=== PATIENT | male | born 1980 | race Caucasian/White ===

== ENCOUNTER 2018-12-13 14:55 | Inpatient (IN) | payer SELFPAY ==
[~2018-12-13] VITALS: Ht 172.7 cm; Wt 115.7 kg
[2018-12-13] MEDS ORDERED: TRIH2TAB3 PO (17:39)
[2018-12-13] MEDS ORDERED: TRAM50TA4 PO (17:39)
[2018-12-13] MEDS ORDERED: HYDR25TA PO (17:39)
[2018-12-13] MEDS ORDERED: CLON1 PO (17:39)
[2018-12-13] MEDS ORDERED: BACL10TA PO (17:39)
[2018-12-13 18:02] LABS: BASOPHILS % (AUTO) 1.1 % (0.0-2.0); EOSINOPHILS % (AUTO) 0.8 % (1.0-6.0); HEMATOCRIT 50.2 % (41-53); HEMOGLOBIN 16.4 g/dL (13.5-17.5); LYMPHOCYTES # (AUTO) 2.6 K/uL (1.0-4.8); LYMPHOCYTES % (AUTO) 22.2 % (22.0-44.0); MEAN CORPUSCULAR HEMOGLOBIN 27.6 pg (26.0-34.0); MEAN CORPUSCULAR HGB CONC 32.6 G/dL (31.0-37.0); MEAN CORPUSCULAR VOLUME 85 fL (80-100); MONOCYTES # (AUTO) 1.1 K/uL (0.1-1.0); MONOCYTES % (AUTO) 9.2 % (2.0-9.0); NEUTROPHILS # (AUTO) 7.7 K/uL (1.8-7.7); NEUTROPHILS % (AUTO) 66.7 % (40.0-70.0); PLATELET COUNT (AUTO) 471 K/uL (150-450); RED BLOOD CELL COUNT(AUTO) 5.92 MIL/uL (4.50-5.90)
[2018-12-13 18:10] LABS: AMPHET/METH SCREEN,URINE NEGATIVE (NEGATIVE); BARBITURATE SCREEN, URINE NEGATIVE (NEGATIVE); BENZODIAZEPINES SCREEN,URINE NEGATIVE (NEGATIVE); CANNABINOID SCREEN,URINE NEGATIVE (NEGATIVE); COCAINE SCREEN,URINE NEGATIVE (NEGATIVE); METHADONE SCREEN, URINE NEGATIVE (NEGATIVE); OPIATE SCREEN,URINE NEGATIVE (NEGATIVE)
[2018-12-13 18:11] LABS: ANION GAP 12 mmol/L (8-16); CALCIUM, TOTAL 9.8 mg/dL (8.8-10.5); CARBON DIOXIDE 27 mmol/L (22-29); CHLORIDE 98 mmol/L (98-107); CREATININE 1.13 mg/dL (0.60-1.30); GLOMERULAR FILTR. RATE CALC > 60 mL/min (>60); GLUCOSE,RANDOM 118 mg/dL (70-110); POTASSIUM 3.6 mmol/L (3.5-5.1); SODIUM SERUM 137 mmol/L (136-145); UREA NITROGEN, BLOOD 13 mg/dL (7-18)
[2018-12-13 18:12] LABS: PHENCYCLIDINE SCREEN,URINE POSITIVE (NEGATIVE)
[2018-12-13 18:17] LABS: ALANINE AMINOTRANSFERASE 44 U/L (12-78); ALBUMIN 4.1 g/dL (3.4-5.0); ALKALINE PHOSPHATASE 148 U/L (46-116); ASPARTATE AMINOTRANSFERASE 28 U/L (15-37); BILIRUBIN,TOTAL 0.8 mg/dL (0.1-1.0); TOTAL PROTEIN, SERUM 9.6 g/dL (6.4-8.2)
[2018-12-13 18:20] LABS: ACETAMINOPHEN < 2 mcg/mL (10-30)
[2018-12-13 18:33] LABS: SALICYLATE < 2.8 mg/dL (2.8-20.0)
[2018-12-13] MEDS ORDERED: ZOLPIDEM TARTRATE 10 MG TABLET PO PRN (19:30)
[2018-12-13] MEDS ORDERED: HALOPERIDOL 5 MG TABLET PO PRN (19:30)
[2018-12-13] MEDS ORDERED: ACETAMINOPHEN 325 MG TABLET PO PRN (21:30)
[2018-12-13] MEDS ORDERED: MAGNESIUM HYDROXIDE SUSPENSION 30 ML UDCUP PO PRN (21:30)
[2018-12-13] MEDS ORDERED: ALBUTEROL SULFATE HFA 90 MCG/PUFF 8 GM INHALER IH PRN (21:30)
[2018-12-13] MEDS ORDERED: MAG HYDROX/AL HYDROX/SIMETH ES 30 ML SUSPENSION UDCUP PO PRN (21:30)
[2018-12-13] MEDS ORDERED: GuaiFENesin/D-METHORPHAN [SUGAR-FREE] 200-20MG/10 ML SYRUP UDCUP PO PRN (21:30)
[2018-12-13] MEDS ORDERED: CloNIDine HCL 0.1 MG TABLET PO PRN (21:30)
[2018-12-13] MEDS ORDERED: IBUPROFEN 400 MG TABLET PO PRN (21:30)
[2018-12-13] MEDS ORDERED: ONDANSETRON HCL 4 MG TABLET PO PRN (21:30)
[2018-12-13] MEDS ORDERED: DOCUSATE SODIUM 100 MG CAPSULE PO PRN (21:30)
[2018-12-13] MEDS ORDERED: LOPERAMIDE HCL 2 MG CAPSULE PO PRN (21:30)
[2018-12-13] MEDS ORDERED: PETROLATUM,WHITE 28 GM JELLY TP PRN (21:30)
[2018-12-13] MEDS ORDERED: NICOTINE 14 MG/24 HOUR PATCH TD PRN (21:30)
[2018-12-14 01:03] VITALS: BP 110/65
[2018-12-14] MEDS ORDERED: PNEUMOCOCCAL VACCINE POLYVALENT 0.5 ML VIAL [PPSV23] IM ONE (01:30)
[2018-12-14 08:00] LABS: CHOL/HDL RATIO 8.2 (4.2-7.3)
[2018-12-14 08:31] VITALS: BP 117/85
[2018-12-14] MEDS: HYDROCHLOROTHIAZIDE 25 MG TABLET PO SCH (08:35)
[2018-12-14] MEDS: TRIHEXYPHENIDYL HCL 2 MG TABLET PO SCH ×2 (13:15→17:01)
[2018-12-14] MEDS: ClonazePAM 1 MG TABLET PO SCH ×2 (13:15→17:01)
[2018-12-14 17:10] VITALS: BP 113/73
[2018-12-15 06:08] VITALS: BP 118/73
[2018-12-15] MEDS: LORazepam 2 MG TABLET PO PRN ×2 (06:08→20:50)
[2018-12-15 08:56] VITALS: BP 130/79
[2018-12-15] MEDS: TRIHEXYPHENIDYL HCL 2 MG TABLET PO SCH ×3 (09:06→16:33)
[2018-12-15] MEDS: HYDROCHLOROTHIAZIDE 25 MG TABLET PO SCH (09:06)
[2018-12-15] MEDS: ClonazePAM 1 MG TABLET PO SCH ×3 (09:06→16:33)
[2018-12-15 16:00] VITALS: BP 107/77
[2018-12-16 04:00] VITALS: BP 105/79
[2018-12-16] MEDS: LORazepam 2 MG TABLET PO PRN (04:21)
[2018-12-16] MEDS: ClonazePAM 1 MG TABLET PO SCH ×2 (08:06→12:32)
[2018-12-16] MEDS: TRIHEXYPHENIDYL HCL 2 MG TABLET PO SCH ×2 (08:06→12:32)
[2018-12-16] MEDS: HYDROCHLOROTHIAZIDE 25 MG TABLET PO SCH (08:06)
[2018-12-16 08:24] VITALS: BP 114/73
[2018-12-16 10:19] VITALS: BP 125/83
[2018-12-16 11:22] VITALS: BP 119/81
[2018-12-16] MEDS ORDERED: TRIH2TAB3 PO (12:39)
== END 2018-12-16 13:56 | disposition home or self-care (01) | DRG 881 ==
LOC: EDBD 14:55 → EMS 14:55 → B3A 21:00
PROVIDERS: ADMIT Psychiatry & Neurology Psychiatry; ATTEND Psychiatry & Neurology Psychiatry
DX: F32.9 Major depressive disorder, single episode, unspecified (principal); R45.851 Suicidal ideations; D72.829 Elevated white blood cell count, unspecified; E78.5 Hyperlipidemia, unspecified; G20 Parkinson's disease; G24.9 Dystonia, unspecified; I10 Essential (primary) hypertension; Z79.899 Other long term (current) drug therapy
CPT/HCPCS: G0480; G0481